=== PATIENT | male | born 1975 | race Asian ===

== ENCOUNTER 2018-04-22 21:50 | Inpatient (IN) | payer SELFPAY ==
[~2018-04-22] VITALS: Ht 175.3 cm; Wt 81.7 kg
[2018-04-22 23:05] LABS: BASOPHILS % 0.4 % (0.0-1.0); EOSINOPHILS # (AUTO) 0.2 (0.0-0.4); EOSINOPHILS % 2.6 % (0.0-6.0); HEMATOCRIT 36.9 % (38.2-49.6); HEMOGLOBIN 12.9 g/dL (14.0-18.0); LYMPHOCYTES % 25.1 % (18.0-39.1); MEAN CORPUSCULAR HEMOGLOBIN 35.7 pg (28-32); MEAN CORPUSCULAR VOLUME 102.2 fL (81-99); MONOCYTES # (AUTO) 1.5 (0.2-0.8); MONOCYTES % 18.9 % (4.4-11.3); NEUTROPHILS # (AUTO) 4.1 (2.1-6.9); NEUTROPHILS % 52.6 % (38.7-80.0); PLATELET COUNT 91 x10e3/uL (140-360); RED BLOOD COUNT 3.61 x10e6/uL (4.3-5.7); RED CELL DISTRIBUTION WIDTH 15.4 % (11.7-14.4)
[2018-04-22 23:13] LABS: BILIRUBIN,URINE NEGATIVE (NEGATIVE); CLARITY,URINE CLEAR (CLEAR); COLOR,URINE YELLOW (YELLOW); KETONES,URINE NEGATIVE (NEGATIVE); LEUKOCYTE ESTERASE ,URINE NEGATIVE (NEGATIVE); NITRITE,URINE NEGATIVE (NEGATIVE); PROTEIN,URINE DIPSTICK NEGATIVE (NEGATIVE); URINE UROBILINOGEN 0.2 mg/dL (0.2 - 1)
[2018-04-22 23:17] LABS: INR 1.67; PROTHROMBIN TIME 18.5 seconds (11.9-14.5)
--- NOTE | 2018-04-22 23:17 | Diagnostic Imaging Report ---
EXAM: CHEST 2 VIEWS, PA and lateral INDICATION: Distended abdomen, swelling and testicles and both legs COMPARISON: None FINDINGS: LINES/TUBES: None LUNGS: Bibasilar airspace opacities. PLEURA: Small bilateral pleural effusions. HEART AND MEDIASTINUM: Normal size and contour. BONES AND SOFT TISSUES: No acute findings. IMPRESSION: Bibasilar airspace opacities, likely atelectasis with adjacent small pleural effusions. Signed by: Dr. Lorene Lux M.D. on 04/22/2018 11:13 PM
[2018-04-22 23:18] LABS: PARTIAL THROMBOPLASTIN TIME 41.4 seconds (23.8-35.5)
[2018-04-22 23:25] LABS: BACTERIA,URINE RARE /HPF; EPITHELIAL CELLS,URINE RARE /LPF; RBC,URINE >50 /HPF (0-5); WBC,URINE (MAN) 0-5 /HPF (0-5)
[2018-04-22 23:28] LABS: ALANINE AMINOTRANSFERASE 53 IU/L (0-55); ALBUMIN 2.4 g/dL (3.5-5.0); ALBUMIN/GLOBULIN RATIO 0.5 (0.8-2.0); ALKALINE PHOSPHATASE 91 IU/L (40-150); AMYLASE 105 U/L (25-125); ANION GAP 11.1 mmol/L (8-16); B-TYPE NATRIURETIC PEPTIDE2 47.3 pg/mL (0-100); BLOOD UREA NITROGEN 5 mg/dL (7-26); BUN/CREATININE RATIO 7 (6-25); CALCIUM 8.2 mg/dL (8.4-10.2); CARBON DIOXIDE 28 mmol/L (22-29); CHLORIDE 99 mmol/L (98-107); CREATINE KINASE 577 IU/L (30-200); CREATININE, SERUM 0.73 mg/dL (0.72-1.25); EST GLOMERULAR FILTRATION RATE > 60 ML/MIN (60-); GLUCOSE 142 mg/dL (74-118); LIPASE 89 U/L (8-78); MAGNESIUM 1.7 MG/DL (1.3-2.1); POTASSIUM 4.1 mmol/L (3.5-5.1); SODIUM 134 mmol/L (136-145)
[2018-04-22 23:47] LABS: THYROID STIMULATING HORMONE 1.752 uIU/mL (0.350-4.940)
[2018-04-23] VITALS (7 sets, daily range): BP systolic 126–152; BP diastolic 68–88
[2018-04-23 00:05] LABS: AMPHETAMINES SCREEN,URINE NEGATIVE (NEGATIVE); BENZODIAZEPINES SCREEN,URINE POSITIVE (NEGATIVE); PHENCYCLIDINE SCREEN,URINE NEGATIVE (NEGATIVE)
[2018-04-23 00:12] LABS: ACETAMINOPHEN < 3 ug/mL (10-30)
--- NOTE | 2018-04-23 00:36 | Diagnostic Imaging Report ---
EXAM: CT ABDOMEN AND PELVIS with IV CONTRAST DATE: 04/22/2018 10:19 PM Time stamp on Exam: 0013 hours INDICATION: Distended abdomen COMPARISON: None TECHNIQUE: The abdomen and pelvis were scanned using a multidetector helical scanner. Coronal and sagittal reformations were obtained. Routine protocol performed. IV Contrast: 100 cc Isovue-370 Oral Contrast: Water CTDIvol has been reviewed. It is below the limits set by the Radiation Protocol Committee (RPC). FINDINGS: LOWER THORAX: Bibasilar atelectasis and small right pleural effusion, likely hydrothorax. LIVER: Cirrhotic liver morphology. BILIARY: The gallbladder is unremarkable. No ductal dilation. SPLEEN: Splenomegaly PANCREAS: No masses ADRENALS: No nodules KIDNEYS: Symmetric perfusion. No enhancing masses. No hydronephrosis. GI TRACT: No distention, wall thickening or evidence of obstruction. Normal appendix. VESSELS: Extensive esophageal, gastric, splenic and mesenteric varices. Recanalization of the periumbilical vein. The main portal vein is patent. PERITONEUM/RETROPERITONEUM: Large volume ascites extending down into the scrotum. LYMPH NODES: No lymphadenopathy REPRODUCTIVE ORGANS: Unremarkable BLADDER: Unremarkable SOFT TISSUES: Subcutaneous edema. BONES: No suspicious bone lesions. IMPRESSION: Cirrhosis with portal hypertension, extensive varices, large volume ascites and small right hydrothorax. Signed by: Dr. Lorene Lux M.D. on 04/23/2018 12:32 AM
[2018-04-23] MEDS ORDERED: SODIUM CHLORIDE 0.9% 50ML 50 ML ONE (01:14)
[2018-04-23] MEDS ORDERED: IOPAMIDOL 370 MG/ML 200 ML INFUS..BTL INJ ONE (01:14)
[2018-04-23] MEDS ORDERED: ONDANSETRON HCL INJ 2 MG/ML VIAL IV PRN (01:15)
[2018-04-23] MEDS ORDERED: MORPHINE SULFATE 2 MG/ML SYR IV PRN (01:15)
--- OUTSIDE RECORDS SUMMARY | 2018-04-23 01:21 | XMS REPORT ---
Author Author [facility] Address Unknown Phone Unavailable Care Team Providers Care Nuclear Medicine Chief Technologist Name Role Phone KEYSHAWN GILBERT Unavailable Unavailable Problems This patient has no known problems. Allergies, Adverse Reactions, Alerts This patient has no known allergies or adverse reactions. Medications This patient has no known medications. Results Test Description Test Time Test Comments Text Results Atomic Results Result Comments CT ABDOMEN/PELVIS W 2018-04-23 00:26:00 [place] [address] Patient Name: MATTIE SHERMAN MR #: [id number] : 1975 Age/Sex: 43/M Req #: [id number] Adm Physician: Ordered by: KEYSHAWN GILBERT MD Report #: [id number] Location: ER Room/Bed: Procedure: [id number] CT/CT ABDOMEN/PELVIS W Exam Date: Exam Time: REPORT STATUS: Signed EXAM: CT ABDOMEN AND PELVIS with IV CONTRAST DATE: 04/22/2018 10:19 PM Time stamp on Exam: 0013 hours INDICATION: Distended abdomen COMPARISON: None TECHNIQUE: The abdomen and pelvis were scanned using a multidetector helical scanner. Coronal and sagittal reformations were obtained. Routine protocol performed. IV Contrast : 100 cc Isovue-370 Oral Contrast: Water CTDIvol has been reviewed. It is below the limits set by the Radiation Protocol Committee (RPC). FINDINGS : LOWER THORAX: Bibasilar atelectasis and small right pleural effusion, likely hydrothorax. LIVER: Cirrhotic liver morphology. BILIARY: The gallbladder is unremarkable. No ductal dilation. SPLEEN: Splenomegaly PANCREAS: No masses ADRENALS: No nodules KIDNEYS: Symmetric perfusion. No enhancing masses. No hydronephrosis. GI TRACT: No distention, wall thickening or evidence of obstruction. Normal appendix. VESSELS: Extensive esophageal, gastric, splenic and mesenteric varices. Recanalization of the periumbilical vein. The main portal vein is patent. PERITONEUM/ RETROPERITONEUM: Large volume ascites extending down into the scrotum. LYMPH NODES: No lymphadenopathy REPRODUCTIVE ORGANS: Unremarkable BLADDER : Unremarkable SOFT TISSUES: Subcutaneous edema. BONES: No suspicious bone lesions. IMPRESSION: Cirrhosis with portal hypertension, extensive varices, large volume ascites and small right hydrothorax. Signed by: Dr. Cliff Lux M.D. on 04/23/2018 12:32 AM Dictated By: CLIFF LUX MD Transcribed By: MARYSOL on 04/23/1831 COPY TO: KEYSHAWN GILBERT MD CHEST 2 VIEWS 2018-04-22 23:12:00 [place] [address] Patient Name: MATTIE SHERMAN MR #: [id number] : 1975 Age/Sex: 43/M Req #: [id number] Adm Physician: Ordered by: KEYSHAWN GILBERT MD Report #: [id number] Location: ER Room/Bed: Procedure: [id number] DX/CHEST 2 VIEWS Exam Date: 04/22/18 Exam Time: 2250 REPORT STATUS: Signed EXAM: CHEST 2 VIEWS, PA and lateral INDICATION: Distended abdomen, swelling and testicles and both legs COMPARISON: None FINDINGS: LINES/TUBES: None LUNGS: Bibasilar airspace opacities. PLEURA: Small bilateral pleural effusions. HEART AND MEDIASTINUM: Normal size and contour. BONES AND SOFT TISSUES : No acute findings. IMPRESSION: Bibasilar airspace opacities, likely atelectasis with adjacent small pleural effusions. Signed by: Dr. Cliff Lux M.D. on 04/22/2018 11:13 PM Dictated By: CLIFF LUX MD [id number] Transcribed By : MARYSOL on 04/22/18 [id number] COPY TO: KEYSHAWN GILBERT MD
[2018-04-23] MEDS ORDERED: NO HOME MEDS (01:41)
[2018-04-23 06:17] LABS: BASOPHILS % 0.3 % (0.0-1.0); EOSINOPHILS # (AUTO) 0.2 (0.0-0.4); HEMATOCRIT 34.4 % (38.2-49.6); HEMOGLOBIN 12.2 g/dL (14.0-18.0); LYMPHOCYTES # (AUTO) 1.5 (1.0-3.2); LYMPHOCYTES % 24.1 % (18.0-39.1); MEAN CORPUSCULAR HEMOGLOBIN 35.9 pg (28-32); MEAN CORPUSCULAR HGB CONC 35.5 g/dL (31-35); MEAN CORPUSCULAR VOLUME 101.2 fL (81-99); MONOCYTES # (AUTO) 1.3 (0.2-0.8); MONOCYTES % 20.7 % (4.4-11.3); NEUTROPHILS # (AUTO) 3.3 (2.1-6.9); NEUTROPHILS % 51.6 % (38.7-80.0); PLATELET COUNT 73 x10e3/uL (140-360); RED CELL DISTRIBUTION WIDTH 15.2 % (11.7-14.4)
[2018-04-23 07:05] LABS: ALANINE AMINOTRANSFERASE 48 IU/L (0-55); ALBUMIN 2.2 g/dL (3.5-5.0); ALBUMIN/GLOBULIN RATIO 0.6 (0.8-2.0); ALKALINE PHOSPHATASE 72 IU/L (40-150); BLOOD UREA NITROGEN 5 mg/dL (7-26); BUN/CREATININE RATIO 8 (6-25); CALCIUM 8.1 mg/dL (8.4-10.2); CARBON DIOXIDE 26 mmol/L (22-29); CHLORIDE 103 mmol/L (98-107); CREATININE, SERUM 0.62 mg/dL (0.72-1.25); EST GLOMERULAR FILTRATION RATE > 60 ML/MIN (60-); GLUCOSE 114 mg/dL (74-118); SODIUM 136 mmol/L (136-145)
[2018-04-23 11:33] LABS: BODY FLUID APPEARANCE CLEAR; BODY FLUID COLOR YELLOW
[2018-04-23 11:35] LABS: BODY FLUID TYPE ASCITIES
[2018-04-23 11:36] LABS: RBC,BODY FLUID 344 cells/uL; WBC,BODY FLUID 258 cells/uL
--- NOTE | 2018-04-23 12:02 | Diagnostic Imaging Report ---
Ultrasound-guided paracentesis 04/23/2018 Pre-Procedure Diagnosis: Cirrhosis Post-procedure Diagnosis:Cirrhosis Lorry Weigher: Jama Moreland Aging Box Hand: None Sedation: None. 1% lidocaine local anesthesia. Estimate blood loss: <5 mL Blood administered: None Complications: None Implants/Grafts: None Specimen: 1200 mL ascites Procedure: Informed consent was obtained and the patient placed supine in the ultrasound suite. A time out was performed, followed by four-quadrant preliminary ultrasound of the abdomen. The right upper quadrant was prepped and draped in standard sterile fashion. Using real-time ultrasound guidance a 5-Hebrew one-step centesis needle was advanced into the peritoneal cavity. An image was stored in the electronic medical record. 4100 mL serous fluid was aspirated. At the end of the procedure the catheter was removed and a sterile dressing applied. The patient tolerated the procedure well. No complications. Findings: Moderate volume ascites. Impression: Successful ultrasound-guided paracentesis with removal of 4100 mL of ascites. Samples were submitted for evaluation if requested by the referring clinician. This report was generated with voice-recognition technology. Errors in buyers' agent can occur. Please interpret accordingly and contact a radiologist if there are any questions regarding the report. Signed by: Dr. Gonzalez Moreland M.D. on 04/23/2018 11:58 AM
--- NOTE | 2018-04-23 12:02 | Diagnostic Imaging Report ---
Ultrasound-guided paracentesis 04/23/2018 Pre-Procedure Diagnosis: Cirrhosis Post-procedure Diagnosis:Cirrhosis Mine Utility Operator: Jama Moreland Social Insurance Administrator: None Sedation: None. 1% lidocaine local anesthesia. Estimate blood loss: <5 mL Blood administered: None Complications: None Implants/Grafts: None Specimen: 1200 mL ascites Procedure: Informed consent was obtained and the patient placed supine in the ultrasound suite. A time out was performed, followed by four-quadrant preliminary ultrasound of the abdomen. The right upper quadrant was prepped and draped in standard sterile fashion. Using real-time ultrasound guidance a 5-Persian one-step centesis needle was advanced into the peritoneal cavity. An image was stored in the electronic medical record. 4100 mL serous fluid was aspirated. At the end of the procedure the catheter was removed and a sterile dressing applied. The patient tolerated the procedure well. No complications. Findings: Moderate volume ascites. Impression: Successful ultrasound-guided paracentesis with removal of 4100 mL of ascites. Samples were submitted for evaluation if requested by the referring clinician. This report was generated with voice-recognition technology. Errors in airline flight attendant can occur. Please interpret accordingly and contact a radiologist if there are any questions regarding the report. Signed by: Dr. Gonzalez Moreland M.D. on 04/23/2018 11:58 AM
[2018-04-23 13:42] LABS: LYMPHOCYTES,BODY FLUID 40 %; MONO/MACROPHG,BODY FLUID 14 %; OTHER CELLS,BODY FLUID 31 %
[2018-04-23 13:43] LABS: NEUTROPHILS,BODY FLUID 15 %
[2018-04-23] MEDS: FUROSEMIDE INJ 10 MG/ML 2 ML VIAL IV SCH (21:29)
[2018-04-23 22:28] LABS: CREATINE KINASE MB 2.5 ng/mL (0-5.0)
[2018-04-24] VITALS (9 sets, daily range): BP systolic 125–142; BP diastolic 61–87
[2018-04-24 06:39] LABS: BASOPHILS % 0.4 % (0.0-1.0); EOSINOPHILS # (AUTO) 0.2 (0.0-0.4); EOSINOPHILS % 3.5 % (0.0-6.0); HEMATOCRIT 34.9 % (38.2-49.6); HEMOGLOBIN 12.4 g/dL (14.0-18.0); LYMPHOCYTES # (AUTO) 1.6 (1.0-3.2); LYMPHOCYTES % 29.4 % (18.0-39.1); MEAN CORPUSCULAR HEMOGLOBIN 35.8 pg (28-32); MEAN CORPUSCULAR HGB CONC 35.5 g/dL (31-35); MEAN CORPUSCULAR VOLUME 100.9 fL (81-99); MONOCYTES # (AUTO) 1.1 (0.2-0.8); MONOCYTES % 20.8 % (4.4-11.3); NEUTROPHILS # (AUTO) 2.5 (2.1-6.9); NEUTROPHILS % 45.5 % (38.7-80.0); PLATELET COUNT 78 x10e3/uL (140-360); RED BLOOD COUNT 3.46 x10e6/uL (4.3-5.7)
[2018-04-24 07:01] LABS: ALANINE AMINOTRANSFERASE 43 IU/L (0-55); ALBUMIN 2.1 g/dL (3.5-5.0); ALBUMIN/GLOBULIN RATIO 0.6 (0.8-2.0); ALKALINE PHOSPHATASE 79 IU/L (40-150); ANION GAP 11.5 mmol/L (8-16); BLOOD UREA NITROGEN 5 mg/dL (7-26); BUN/CREATININE RATIO 7 (6-25); CALCIUM 7.8 mg/dL (8.4-10.2); CARBON DIOXIDE 27 mmol/L (22-29); CHLORIDE 103 mmol/L (98-107); CREATININE, SERUM 0.67 mg/dL (0.72-1.25); EST GLOMERULAR FILTRATION RATE > 60 ML/MIN (60-); GLUCOSE 106 mg/dL (74-118); POTASSIUM 3.5 mmol/L (3.5-5.1); SODIUM 138 mmol/L (136-145)
[2018-04-24] MEDS: FUROSEMIDE INJ 10 MG/ML 2 ML VIAL IV SCH ×2 (08:51→16:55)
--- NOTE | 2018-04-24 16:46 | Consultation ---
DATE OF CONSULTATION: April 23, 2018 GI CONSULT NOTE REFERRING PHYSICIAN: Dr. Onofre REASON FOR CONSULT: Decompensated alcoholic liver cirrhosis. HISTORY OF PRESENTING ILLNESS: [id number][place]old [place] male who does not see any doctor. He is not on any prescription drug. He has a history of alcohol dependence. He came to the emergency room with progressive swelling in both legs along with abdominal distention. He has no known prior history of any liver cirrhosis. CT scan of the abdomen and pelvis done with IV contrast showed cirrhosis with portal hypertension with extensive varices. He got admitted with working diagnosis of decompensated alcoholic liver cirrhosis. Patient has been drinking about 12 cans of beer almost every day. He does not know whether he has any chronic viral hepatitis. REVIEW OF SYSTEMS: Twelve-point system reviewed, symptomatology is limited to GI system. PAST MEDICAL HISTORY: Unknown. PAST SURGICAL HISTORY: Noncontributory. FAMILY HISTORY: Noncontributory. SOCIAL HISTORY: Drinks about 12 to 14 cans of beer almost every day. No drugs. No smoking. HOME MEDICATIONS: No prescription drugs. He consumes Tylenol almost on a regular basis. PHYSICAL EXAMINATION: VITAL SIGNS: Temperature 98.4, pulse 94, respiration 20, blood pressure 129/74, oxygen saturation 93% on room air. GENERAL: Not in any acute distress, obese body habitus. HEENT: Moist mucous membrane. Slightly icteric sclerae. NECK: No neck or axillary adenopathy. CVS: S1 and S2. Regular. LUNGS: Bilaterally grossly clear. ABDOMEN: Distended with ascites, nontender. No palpable mass or hernia. Abdominal exam is limited secondary to ascites. EXTREMITIES: Bilateral 2+ pitting leg edema. LABS: Sodium 136, potassium 4.0, chloride 103, bicarb 26, BUN 11, creatinine 0.5. Liver enzymes showed a total bilirubin 5.5, AST 83, ALT 48, alkaline phosphatase 72. Total protein 6.1 and albumin 2.2. Acute viral hepatitis serology is pending. PT 18.5, INR 1.67. WBC 6.32, hemoglobin 12.2, hematocrit 34.4, MCV 101.2, platelet count 73,000. CT of the abdomen with contrast showed a cirrhotic liver, ascites, portal hypertension, and varices. IMPRESSION: Decompensated alcoholic liver cirrhosis. PLAN: Diagnostic paracentesis, rule out SBP. Low-salt diet. Dual diuretic therapy with spironolactone as well as Lasix (in the ratio of 1:4). Daily weight. Minimize hepatotoxic drugs. Alcohol cessation counseling. Patient needs a strict outpatient management for decompensated alcoholic liver cirrhosis. I thank Dr. Onofre for allowing me to participate in the care of this patient. Job#: [id number] DR PENA
[2018-04-25] VITALS (8 sets, daily range): BP systolic 117–136; BP diastolic 58–86
[2018-04-25] MEDS: SPIRONOLACTONE 25 MG TAB PO SCH (09:25)
[2018-04-25] MEDS: FUROSEMIDE INJ 10 MG/ML 2 ML VIAL IV SCH ×2 (09:25→17:01)
[2018-04-26 00:14] VITALS: BP 134/79
[2018-04-26 04:00] VITALS: BP 135/77
[2018-04-26 07:00] VITALS: BP 143/87
[2018-04-26 07:27] VITALS: BP 143/87
[2018-04-26] MEDS: FUROSEMIDE INJ 10 MG/ML 2 ML VIAL IV SCH (08:29)
[2018-04-26] MEDS: SPIRONOLACTONE 25 MG TAB PO SCH (08:29)
== END 2018-04-26 08:45 | disposition home or self-care (01) | DRG 433 ==
LOC: ER 21:50 → ERHOLD 04-23 01:03 → MED/SURG3 04-23 02:09
PROVIDERS: ADMIT Internal Medicine; ATTEND Internal Medicine
PROC: 0W9G3ZX Drainage of Peritoneal Cavity, Percutaneous Approach, Diagnostic (ICD-10-PCS; principal; 2018-04-23)
DX: K70.31 Alcoholic cirrhosis of liver with ascites (principal); D68.4 Acquired coagulation factor deficiency; K76.6 Portal hypertension; F10.20 Alcohol dependence, uncomplicated; E88.09 Other disorders of plasma-protein metabolism, not elsewhere classified
CPT/HCPCS: 36415; 49083; 71046; 74177; 74470; 80053; 80307; 80320; 80329; 81001; 82040; 82140; 82150; 82550; 82553; 83605; 83615; 83690; 83735; 83880; 84157; 84443; 84484; 85025; 85610; 85730; 86850; 86900; 87040; 87070; 87086; 87205; 89051; 93005; 99284; J1940; Q9967